=== PATIENT | female | born 1990 | race Caucasian/White ===

== ENCOUNTER 2018-07-31 12:51 | Emergency (ER) | payer OTHER ==
[~2018-07-31] VITALS: Ht 157.5 cm; Wt 75.7 kg
== END 2018-07-31 18:28 | disposition home or self-care (01) ==
LOC: ER 12:51
DX: O98.513 Other viral diseases complicating pregnancy, third trimester (principal); B34.9 Viral infection, unspecified; Z34.03 Encounter for supervision of normal first pregnancy, third trimester

== ENCOUNTER 2018-08-02 01:08 | Outpatient (CLI) | payer OTHER ==
[2018-08-02] MEDS ORDERED: PRENATAL TABLE1 EAC1 PO (01:19)
[2018-08-02] MEDS ORDERED: FOLIC ACID20 MG PO (01:20)
[2018-08-03] MEDS ORDERED: CLARITIN10 MG PO (13:21)
== END 2018-08-02 13:33 | disposition home or self-care (01) ==
LOC: OBS/DEL 01:08
DX: O26.893 Other specified pregnancy related conditions, third trimester (principal); J06.9 Acute upper respiratory infection, unspecified; O23.43 Unspecified infection of urinary tract in pregnancy, third trimester; Z34.83 Encounter for supervision of other normal pregnancy, third trimester

== ENCOUNTER 2018-08-03 13:06 | Inpatient (IN) | payer OTHER ==
[~2018-08-03] VITALS: Ht 157.5 cm; Wt 75.7 kg
[~2018-08-03 13:06] MED LIST: FOLIC ACID20 MG PO; PRENATAL TABLE1 EAC1 PO
[2018-08-03] MEDS ORDERED: CLARITIN10 MG PO (13:21)
== END 2018-08-09 12:34 | disposition home or self-care (01) | DRG 832 ==
LOC: OBS/DEL 13:06 → OB/GYN 08-04 11:27 → OBS/DEL 08-04 11:27 → LDR 08-04 11:27 → OB/GYN 08-05 10:21
PROVIDERS: ADMIT Obstetrics & Gynecology
DX: O98.513 Other viral diseases complicating pregnancy, third trimester (principal); N39.0 Urinary tract infection, site not specified; A49.3 Mycoplasma infection, unspecified site; J06.9 Acute upper respiratory infection, unspecified; Z88.0 Allergy status to penicillin

== ENCOUNTER 2018-09-03 16:17 | Inpatient (IN) | payer OTHER ==
[~2018-09-03] VITALS: Ht 162.6 cm; Wt 80.3 kg
[~2018-09-03 16:17] MED LIST changes: +CLARITIN10 MG PO
== END 2018-10-03 14:28 | disposition home or self-care (01) | DRG 798 ==
LOC: OB/GYN 09-13 15:00 → LDR 10-01 04:00 → OB/GYN 10-01 04:00
PROVIDERS: ADMIT Obstetrics & Gynecology
PROC: 10E0XZZ Delivery of Products of Conception, External Approach (ICD-10-PCS; principal; 2018-10-02)
PROC: 0UL70ZZ Occlusion of Bilateral Fallopian Tubes, Open Approach (ICD-10-PCS; 2018-10-02)
PROC: 10907ZC Drainage of Amniotic Fluid, Therapeutic from Products of Conception, Via Natural or Artificial Opening (ICD-10-PCS; 2018-10-02)
PROC: 4A1HXCZ Monitoring of Products of Conception, Cardiac Rate, External Approach (ICD-10-PCS; 2018-10-02)
DX: O80 Encounter for full-term uncomplicated delivery (principal); Z37.0 Single live birth; Z3A.39 39 weeks gestation of pregnancy; Z30.2 Encounter for sterilization; Z22.330 Carrier of Group B streptococcus